=== PATIENT | female | born 1945 | race Caucasian/White ===

== ENCOUNTER 2019-05-12 12:20 | Inpatient (IN) ==
[2019-05-12] MEDS ORDERED: TYLENOL PO PRN (13:18)
[2019-05-12] MEDS ORDERED: ZOFRAN IV PRN (13:18)
--- NOTE | 2019-05-12 13:45 | Diag Imaging Result Doc PS360 ---
EXAM: CHEST-2 VIEWS 05/12/2019 HISTORY: hypoxia TECHNIQUE: PA and lateral chest COMMENT: There is cardiomegaly. There is no evidence of acute pulmonary disease and compared to 06/05/2018 there has been no appreciable change. IMPRESSION: Cardiomegaly. Electronically signed by Maynor Sauer 05/12/2019 1:43 PM
[2019-05-12 14:14] LABS: ALLEN TEST YES; BE 12.1 mmoll (-3.0-3.0); BLOOD TYPE ARTERIAL; HCO3-(ACT) 34.4 mmoll (20.0-26.0); METHB 1.1 % (0.0-1.5); O2(CT) 13.4 mL/dL (15.0-23.0); O2HB 96.1 % (95.0-99.0); PCO2(98.6) 47 mmHg (35-45); PO2(98.6) 93 mmHg (60-100); SAMPLE BLOOD; SAO2 98.9 % (95.0-100.0); THB 9.8 g/dL (11.5-17.4)
[2019-05-12 14:17] LABS: MODALITY CANNULA
--- NOTE | 2019-05-12 14:23 | EKG Report ---
Test Performed on : 05/12/2019 2:14:17 PM Test Reason : hypoxia Blood Pressure : / mmHG Vent. Rate : 086 BPM Atrial Rate : 084 BPM P-R Int : 000 ms QRS Dur : 084 ms QT Int : 416 ms P-R-T Axes : 000 084 046 degrees QTc Int : 497 ms Normal sinus rhythm. Low voltage QRS Nonspecific ST and T wave abnormality Abnormal ECG No previous ECGs available Confirmed by Stevie Cash MD ([id number]) on 05/13/2019 9:25:01 PM
[2019-05-12 15:16] LABS: BASO# 0.01 X1000 (0.0-0.2); BASO% 0.1 % (0.0-0.8); EOS# 0.27 X1000 (0.0-0.7); HEMATOCRIT 31.7 % (37.0-47.0); HEMOGLOBIN 9.6 g/dL (12.0-16.0); IMM GRAN# 0.03 X1000 (0.0-0.04); IMM GRAN% 0.3 % (0.0-0.5); LYMPH# 1.43 X1000 (1.2-3.4); LYMPH% 15.8 % (20.5-51.1); MCH 26.7 PG (27-31); MCHC 30.3 g/dL (33-37); MCV 88.1 FL (81-99); MONO# 0.67 X1000 (0.11-0.59); MONO% 7.4 % (1.7-9.3); MPV 9.6 FL (7.4-10.4); NEUT# 6.62 X1000 (1.4-6.5); NEUT% 73.4 % (42.2-75.2); PLT 258 X1000 (130-400); RDW 15.5 % (11.5-14.5); WBC 9.03 X1000 (4.8-10.8)
[2019-05-12 15:36] LABS: IRON SATURATION 14 %; TIBC 273 ug/dL; TOTAL IRON 39 ug/dL (49-151); UNBOUND IRON 234 ug/dL (112-346)
[2019-05-12 15:37] LABS: ALB/GLOB RATIO 1.1; ALBUMIN 3.2 g/dL (3.5-5.0); CALCIUM 7.7 mg/dL (8.8-10.2); CREATININE 1.9 mg/dL (0.5-0.9); POTASSIUM 4.4 mmol/L (3.5-5.1); TOTAL BILIRUBIN 0.32 mg/dL (0.20-1.00); TOTAL PROTEIN 6.2 g/dL (6.3-8.3)
[2019-05-12 16:13] LABS: FREE T4 1.68 ng/dL (0.93-1.70); TSH 1.1 uIUmL (0.27-4.20)
[2019-05-12 16:20] LABS: URINE SOURCE CLEAN CATCH
[2019-05-12 16:26] LABS: BILIRUBIN URINE NEGATIVE (NEGATIVE); BLOOD URINE NEGATIVE (NEGATIVE); COLOR YELLOW; GLUCOSE URINE NEGATIVE (NEGATIVE); KETONE URINE NEGATIVE (NEGATIVE); LEUKOCYTES URINE LARGE (NEGATIVE); NITRITE URINE NEGATIVE (NEGATIVE); PROTEIN URINE NEGATIVE (NEGATIVE); SP GRAVITY URINE 1.009; TURBIDITY URINE CLEAR (CLEAR); UR EPITHELIAL CELLS <10 /HPF (<10); URINE BACTERIA 3+ /HPF; URINE RBC <10 /HPF (<10); URINE WBC 20-40 /HPF (<10); UROBILINOGEN URINE NORMAL (NORMAL)
[2019-05-12] MEDS ORDERED: HUMULIN 70/30 SUBQ SCH (21:00)
[2019-05-12] MEDS: NORCO-5 PO SCH ×2 (22:45→22:51)
[2019-05-12] MEDS: ELAVIL PO SCH (22:45)
[2019-05-12] MEDS: HUMULIN R SUBQ SCH (23:27)
[2019-05-13] MEDS: HUMULIN R SUBQ SCH ×4 (06:37→21:27)
--- NOTE | 2019-05-13 07:40 | HISTORY AND PHYSICAL ---
CHIEF COMPLAINT: Dry hacky cough and hoarseness. HISTORY OF PRESENT ILLNESS: The patient is a 74-year-old white female followed in my medical practice. She has longstanding obesity and some upper airway noise and comes in with 5-day history of dry hacky cough, some hoarseness. She has been taking some xekl-axz-[id number] Zyrtec-D with minimal improvement. Noted in the office to have all room air O2 saturation of 86% and at complete rest 89%. She has had some leg swelling and redness of the left beckman and leg area. The patient has difficulty getting about and is largely confined to her apartment. She has no way to travel, except friends take her to appointments as needed, and she was unable to get the carotid Dopplers ordered on her outpatient recently due to some carotid bruits noted on physical, left greater than right, back at her physical in January. She has been noted to have anemia and is folic acid deficient by labs reviewed from 01/13/2019. She denies melena, hematochezia. She has had normal bowel movements by her report. She has refused colonoscopy through the years. MEDICATIONS: Prior to admission are new addition of Crestor, which she has tolerated well at 10 mg p.o. at bedtime, Lasix 40 mg p.o. b.i.d., Coreg 6.25 mg b.i.d., Synthroid 200 mcg daily, losartan 100 mg daily, Elavil 10 mg at bedtime, Novolin NPH insulin 58 units subcutaneous q.a.m., 38 units subcutaneous q.p.m., NovoLog 28 units subcutaneous q.a.m., 22 units subcutaneous q.p.m. ALLERGIES: ISIDRO inhibitors, which caused angioedema. PAST MEDICAL HISTORY: 1. Type 2 diabetes mellitus diagnosed in 1996. 2. Hypothyroidism in 1971 after radioactive iodine ablation due to hyperthyroidism. 3. Chronic back pain. 4. Gastroesophageal reflux disease with hiatal hernia. 5. Osteoarthritis. 6. Hypertension diagnosed January 2002. 7. History of BCC left nasal bridge March 2002, treated surgically. 8. Hypercholesterolemia. 9. Morbid obesity. PAST SURGICAL HISTORY: 1. Lumbar laminectomy secondary to stenosis October 1997. 2. Partial thyroidectomy x2. 3. Lumbar laminectomy in 1985. 4. BTL. 5. Right TKR 2005. 6. Negative breast biopsy June 2009. IMMUNIZATIONS: 1. Pneumovax 23 given 12/26/1998, February 2004 and December 2014. 2. Prevnar 13 given 07/24/2015. 3. Influenza vaccine given January 2019. 4. Td given February 2016. FAMILY HISTORY: Notable for ME in 2 uncles at greater than 60 years of age. Mother with osteoarthritis. TIP PRINTER cancer in her aunt. Diabetes mellitus in her father. No hypertension or strokes in the family. SOCIAL HISTORY: The patient lives in [place]. She is , has 2 sons. Retired from [employer]. Has never been a smoker. Does not drink alcohol. REVIEW OF SYSTEMS: CV: Denies chest pains recently. Denies palpitations. Has had some moderate OLMSTEAD. Skin: No recent moles or rashes. She does bruise easily. HEENT: She denies dizziness or headache. Has been having some sinus drainage and hoarseness; the hoarseness has been fairly prominent. GI: Denies dyspepsia, melena, hematochezia. Never had a colonoscopy. Normal BM's. Musculoskeletal: Complains of arthritic pain; diffuse in hands, hips, especially. PHYSICAL EXAM: VITAL SIGNS: Height 5 feet 4 inches tall. She is unable to weigh currently as she is on a walker. Blood pressure 122/54, pulse 85, O2 saturation 86% after ambulating into the office on a walker, 89% at rest on room air. Moderate to severe obesity with short stature. SKIN: Scattered bruises over the forearms. PERRL. EOMI. Sclerae minimal injection. TMs clear. OP mild redness, posterior drainage. Large tongue. Upper airway noise noted, nares fairly clear. NECK: No LA, JVD. There are carotid bruits, left greater than right. No definite TMG. CV: RRR without distinct murmur. LUNGS: Distant breath sounds, CTA. BACK: No point tenderness. ABDOMEN: Protuberant, soft NT/ND. No mass. No HSM. BREASTS/PELVIC/RECTAL: Deferred. EXT: There is 2+ left lower extremity edema with prominent redness over the left beckman area. 1+ lower extremity edema, right lower extremity. No calf tenderness or cords. NEUROLOGIC: Cranial nerves 2-12 are intact. No focal deficits. LABORATORY DATA: A1c in the office shows 7.9. Lab data from January shows anemia with folate level of 6.6, free T4 1.58, TSH 1.79, ferritin 49, B 12 greater than 2000. Total iron 47, TIBC 312, percent saturation 15. PTT 29.2, PT 14, INR 1.07. ASSESSMENT: 1. Hypoxia. 2. Recent cough with hoarseness. 3. Large neck with upper airway noise prominent. 4. Insulin-dependent diabetes mellitus. 5. Hypertension. 6. Hypercholesterolemia. 7. Profound osteoarthritis. 8. Morbid obesity. 9. Hypothyroidism. 10. Carotid bruits, left greater than right. 11. Chronic back pain. 12. Gastroesophageal reflux disease with hiatal hernia. 13. Pronounced anemia with iron deficiency and folic acid deficiency. PLAN: Due to the hypoxia and cough, we will admit the patient. Check chest x-ray. Check extensive labs. Check echocardiogram. Check carotid Doppler studies by oxygen supplementation. Monitor Accu-Cheks. Will get a GI consult due to anemia and no prior history of colonoscopy as she has refused to this point. cc: Marko Maynard MD
[2019-05-13 07:54] LABS: BASO# 0.02 X1000 (0.0-0.2); BASO% 0.2 % (0.0-0.8); EOS# 0.27 X1000 (0.0-0.7); EOS% 2.8 % (0.0-10.0); HEMATOCRIT 33.7 % (37.0-47.0); HEMOGLOBIN 10.2 g/dL (12.0-16.0); IMM GRAN# 0.02 X1000 (0.0-0.04); IMM GRAN% 0.2 % (0.0-0.5); LYMPH# 1.26 X1000 (1.2-3.4); LYMPH% 12.8 % (20.5-51.1); MCH 26.8 PG (27-31); MCHC 30.3 g/dL (33-37); MCV 88.5 FL (81-99); MONO# 0.67 X1000 (0.11-0.59); MONO% 6.8 % (1.7-9.3); MPV 9.7 FL (7.4-10.4); NEUT# 7.57 X1000 (1.4-6.5); NEUT% 77.2 % (42.2-75.2); PLT 293 X1000 (130-400); RBC 3.81 XMIL (4.2-5.4); RDW 15.5 % (11.5-14.5); WBC 9.81 X1000 (4.8-10.8)
[2019-05-13] MEDS ORDERED: HUMULIN 70/30 SUBQ SCH (08:00)
[2019-05-13 08:18] LABS: CALCIUM 8.5 mg/dL (8.8-10.2); CREATININE 1.7 mg/dL (0.5-0.9); POTASSIUM 4.7 mmol/L (3.5-5.1)
[2019-05-13] MEDS ORDERED: DIFLUCAN PO SCH (09:00)
[2019-05-13] MEDS: NORCO-5 PO SCH ×2 (09:50→21:26)
[2019-05-13] MEDS: SYNTHROID PO SCH (09:51)
[2019-05-13] MEDS: ZOSYN 3.375 GM in NS 50 ML IV SCH ×3 (09:51→21:27)
[2019-05-13] MEDS: SINGULAIR PO SCH (09:51)
[2019-05-13] MEDS: LASIX PO SCH (09:51)
[2019-05-13] MEDS: ASPIRIN PO SCH (09:51)
--- NOTE | 2019-05-13 12:39 | ECHO REPORT ---
ORDER DATE: 05/12/2019 INTERPRETING PHYSICIAN: Abebe Sanford MD. REQUESTING PHYSICIAN: Marko Maynard MD. CLINICAL INDICATIONS: Hypoxia, CHF. M-MODE MEASUREMENTS: Left ventricle end diastole: 5.6 cm. Left ventricle end systole: 2.3 cm. Posterior wall: 0.9 cm. Interventricular septum: 0.9 cm. Left atrium: 2.8 cm. Aortic diameter: 3.0 cm. SUMMARY OF 2-DIMENSIONAL IMAGIN. The left ventricular function appears to be normal. Ejection fraction is estimated at 65% to 70%. Optison was added. The chamber is not dilated. There is no wall motion abnormality. 2. The right-sided chambers appear to be normal. 3. The left atrium also does not appear to be dilated. 4. The inferior vena cava is probably at the upper limits of normal. 5. The aortic valve is grossly normal. Color flow mapping unremarkable. 6. The mitral valve also looks grossly normal. Color flow mapping is unremarkable. 7. The pulse wave Doppler of mitral inflow shows normal E/A ratio. 8. Tissue Doppler of septal and lateral mitral annulus averages 5-1/2 cm, thus suggesting impaired left ventricular relaxation. 9. The pulmonary pressure in this case is probably underestimated however it appears to be grossly normal. Pulmonic valve was suboptimally visualized. 10.Doppler pattern is unremarkable. 11.There is no pericardial effusion, no mass, and no thrombus. Clinical correlation is recommended. cc: MD Marko Bhandari MD
--- NOTE | 2019-05-13 14:15 | PROGRESS NOTE ---
DATE: 05/13/2019 SUBJECTIVE: Patient is stable. She denies particular shortness of breath. She is on oxygen at 1- 2 liters/minute per nasal cannula and saturations are doing well at 90-96% percent. OBJECTIVE: Vital Signs: Afebrile. Vital signs stable. Blood pressure mildly elevated. Cardiovascular: Regular rate and rhythm. Lungs: Clear. Morbid obesity. Some upper airway noise noted. Abdomen: Soft, nontender, nondistended. Extremities: No calf tenderness. There is 1 to 2+ edema left slightly greater than right. Mild to moderate redness over the shins, left greater than right. Neurologic: Cranial nerves 2 through 12 intact. Nonfocal. LABORATORY DATA: Urinalysis was abnormal yesterday with large leukocytes, 3+ bacteria. Urine cultures growing out gram-negative rods. Patient asymptomatic from this on questioning. Sodium 140, potassium 4.7 chloride 96, CO2 32, BUN 31, creatinine 1.7. Blood sugars in the low 100s primarily, 60 on admission yesterday. Calcium 8.5. White count normal at 9.8, hemoglobin 10.2, platelets 293,000. ABG yesterday on 2 L per nasal cannula shows pH 7.5, pCO2 47, PO2 93, HCO3 34, O2 saturation 98.9. Echocardiogram done this morning overall good with EF of 65%. Carotid Doppler test shows some lqqd-ec-fbkdinoh blockage on the right. No major blockage on the left. ASSESSMENT: 1. Hypoxia. 2. Recent cough and hoarseness, rule out allergic bronchitis. 3. Upper airway noise with large neck. 4. Insulin-dependent diabetes mellitus. 5. Cellulitis lower extremities, left slightly greater than right. 6. Gram-negative alessia urinary tract infection. 7. Hypertension. 8. Hypercholesterolemia. 9. Profound osteoarthritis. 10. Morbid obesity. 11. Hypothyroidism. 12. Carotid bruits with mild to moderate right carotid stenosis. 13. Chronic back pain on chronic narcotic medication. 14. Gastroesophageal reflux disease with hiatal hernia. 15. Pronounced anemia, iron deficiency with normal folic acid level, currently. PLAN: Will await GI evaluation for possible endoscopies regarding the anemia. Continue oxygen at this time. Add physical therapy. Continue Zosyn. Add nebulizer treatments. Ambulate patient. Encouraged her in weight reduction. Continue IV Zosyn. Leg elevation encouraged. cc: Marko Maynard MD
[2019-05-13] MEDS: DUONEB (A & A) INH SCH ×3 (16:42→23:40)
--- NOTE | 2019-05-13 19:14 | GASTROENTEROLOGY CONSULTATION ---
DATE: 05/13/2019 REASON FOR CONSULTATION: Anemia. PRESENT ILLNESS: This is a 74-year-old female who is a patient of Dr. Maynard. She has been following with him for some chronic respiratory problems. She has had lower extremity edema. Also she has had a report of a dry cough and some hoarseness. Prior to admission she was taking apdp-phd-swdyzwv antihistamines, with no improvement. She has also had findings of anemia since last year. She has denied visible blood in the stool or black stools. No reported change in her bowel habits. No reported diarrhea or constipation. She usually has a bowel movement every other day. She denies abdominal pain. She denies nausea or vomiting. Denies hematemesis. She denies reflux as long as she is taking her antireflux medication. She usually takes cnvs-nqe-xzxgnat Tag[place]. She reports occasional dysphagia to meats. She has noticed hoarseness. She states she has a thick neck and tongue, so sometimes she has trouble swallowing. She has had 2 thyroid surgeries for goiters. She has also received radiation and iodine treatment for the goiters. She has seen a call center receptionist in the past but it has been many years ago. She thinks maybe it was Dr. Dykes. She states she has never had an EGD or colonoscopy by her knowledge. PAST MEDICAL HISTORY: 1. Type 2 diabetes. 2. Hypothyroidism. 3. History of goiters and radiation/radioactive iodine. 4. Chronic back pain. 5. GERD. 6. Osteoarthritis. 7. Hypertension. 8. Hypercholesterolemia. 9. Morbid obesity. PAST SURGICAL HISTORY: Lumbar laminectomy, partial thyroidectomy x2 related to goiters, lumbar laminectomy, bilateral tubal ligation, right total knee replacement in 2005, breast biopsy. ALLERGIES: Oxycodone, unknown reaction; morphine causes confusion. HOME MEDICATIONS: Elavil 10 mg every night; aspirin 81 mg daily; Coreg 6.25 mg twice a day; vitamin D3, 2000 mcg daily; Lasix 40 mg twice a day; insulin 70/30 daily; hydrocodone/acetaminophen 5/500, 7.5 mg twice a day; NovoLog 22 units at night; NovoLog 25 units in the morning; Synthroid 200 mcg daily; Cozaar 100 mg daily; B12, 1000 mcg daily; Crestor 10 mg every night. SOCIAL HISTORY: She lives in [place]. She is . She has 2 sons. She is retired. Never a smoker. No reported alcohol use. REVIEW OF SYSTEMS: Per history of present illness. PHYSICAL EXAMINATION: Vital signs: Temperature 97.5 degrees, pulse 72, respirations 20, blood pressure 151/44. Generally the patient is awake and alert. She is sitting up in a chair in no acute distress at the time of my visit. She was not wearing her oxygen. Per nurse report, she has been on O2 by nasal cannula as needed 1-2 L throughout the day. The patient currently denies chest pain or shortness of breath. HEENT: Normocephalic, atraumatic. Pupils equal, round, reactive to light. Sclerae nonicteric. Lungs with some decreased sounds noted. Abdomen obese, otherwise soft, nontender. Positive bowel sounds. Extremities with bilateral lower extremity edema noted. Neurologically, cranial nerves 2-12 grossly intact. The patient is awake and alert, oriented to person, place and time. LABORATORY DATA: Hematology: WBC 9.81, hemoglobin 10.2, hematocrit 33.7, MCV 88.5, platelets 293,000. Chemistry: Sodium 140, potassium 4.7, chloride 96, CO2 is 32, BUN 31, creatinine 1.7, glucose 143, calcium 8.5. Iron 39, TIBC 273, percent saturation 14, ferritin 38. Total bilirubin 0.32, AST 11, ALT 6, alkaline phosphatase 77. Vitamin B12 greater than 1000, folate 11.8. TSH 1.10, free T4 is 1.68. IMAGING: Chest x-ray showing cardiomegaly. ASSESSMENT: 1. Recent cough, hoarseness. 2. Insulin-dependent diabetes. 3. Cellulitis, lower extremities. 4. Urinary tract infection. 5. Anemia, with hemoglobin and hematocrit 10.2 and 33.7 today. 6. Other medical problems: Morbid obesity, hypothyroidism related to thyroid surgeries related to goiters, gastroesophageal reflux disease. PLAN: The patient has never had EGD or colonoscopy by her report. She has some iron-deficiency anemia. Would recommend EGD first, and further plans to be made according to findings. I have discussed the EGD procedure with the patient. She wishes to proceed. I have discussed benefits and risks with the patient. Further plans to be made according to findings. Thank you for this consultation. I have discussed this case with Dr. Asa. Dictated by JUAN M Mcduffie for Arik Bray MD cc: JUAN M Basilio MD Stephen W. Harbin, MD
[2019-05-13] MEDS: CRESTOR PO SCH (21:26)
[2019-05-13] MEDS: COREG PO SCH (21:26)
[2019-05-13] MEDS: ELAVIL PO SCH (21:26)
[2019-05-14] MEDS: ZOSYN 3.375 GM in NS 50 ML IV SCH ×4 (03:25→20:54)
[2019-05-14] MEDS: DUONEB (A & A) INH SCH ×6 (03:30→23:15)
[2019-05-14] MEDS: HUMULIN R SUBQ SCH ×4 (06:29→20:55)
[2019-05-14] MEDS ORDERED: DIPRIVAN 1% ONE (11:38)
[2019-05-14] MEDS ORDERED: XYLOCAINE-MPF 2% ONE (11:39)
[2019-05-14] MEDS ORDERED: LOPRESSOR ONE (12:03)
--- NOTE | 2019-05-14 12:03 | ENDOSCOPY OPERATIVE NOTE ---
[facility] ENDOSCOPY OPERATIVE NOTE , EGD PROCEDURE REPORT PATIENT: Ora Guzman ADMISSION DATE: 05/14/2019 MR#: [id number] : 1945 PROCEDURE DATE: 05/14/2019 SURGEON: Arik Bray MD STATUS: inpatient RESPIRATORY PHYSICIAN: Rebekah Elliott and Kerline Wyatt PREOPERATIVE DIAGNOSIS: The patient is a 74 yr old female here for an EGD due to acute post hemorrha gic anemia and melena. PROCEDURE PERFORMED: EGD, diagnostic MEDICATIONS: Per Anesthesia TOPICAL ANESTHETIC: none CONSENT: The patient understands the risks and benefits of the procedure and understands that these r isks include, but are not limited to: sedation, allergic reaction, infection, perforation and/or bleeding. Alternative means of evaluation and treatment include, among others: physical exam, x-rays, and/or surgical intervention. The patient elects to proceed with this endoscopic procedure. HISORY AND PHYSICAL: 05/14/2019 DESCRIPTION OF PROCEDURE: During intra-op preparation period all mechanical and medical equipment was checked for proper function. Hand hygiene and appropriate measures for infection prevention was taken. After the risks, benefits and alternatives of the procedure were thoroughly explained, Informed consent was verified, confirmed and timeout was successfully executed by the treatment team. The patient was anesthetized with topical anesthesia and the [id number] ([id number]) endoscope was introduced through the mouth and advanced to the second portion of the duoden um. Retroflexion was performed in the stomach and revealed no abnormalities. The gastroscope was then slowly withdraw n and removed. ESOPHAGUS: Mild reflux esophagitis was found 38 cm from the incisors and at the gastroesophageal junc tion. Esophagitis was LA Class B: One or more mucosal breaks > 5mm, but without continuity across mucosal folds. The esophagus was otherwise normal. STOMACH: Mild gastritis (inflammation) was found in the gastric antrum. DUODENUM: Moderate duodenal inflammation was found in the duodenal bulb. PERTINENT NEGATIVES: There was no evidence of ulcer and tumor. SPECIMENS REMOVED: No ADVERSE EVENTS: There were no complications. POSTOPERATIVE DIAGNOSIS: 1. Reflux esophagitis 38 cm from the incisors and at the gastroesophage al junction 2. The esophagus was otherwise normal 3. Gastritis (inflammation) was found in the gastric antrum 4. Duodenal inflammation was found in the duodenal bulb RECOMMENDATIONS: 1. Start Proton pump inhibitor twice daily - 30 minutes before a meal 2. Avoid non-steroid anti-inflammatory drugs 3. Resume previous diet 4. Return to floor when standard parameters are met REPEAT EXAM: Arik Bray MD eSigned: Arik Bray MD 05/14/2019 12:03 PM cc: Marko Maynard MD PATIENT NAME: Thomas Johnathandavid Bagley MR#: [id number]
--- NOTE | 2019-05-14 12:59 | EKG Report ---
Test Performed on : 05/14/2019 12:46:41 PM Test Reason : rhythm change Blood Pressure : / mmHG Vent. Rate : 082 BPM Atrial Rate : 082 BPM P-R Int : 190 ms QRS Dur : 078 ms QT Int : 420 ms P-R-T Axes : 010 099 094 degrees QTc Int : 490 ms Normal sinus rhythm. with sinus arrhythmia. Rightward axis Low voltage QRS Septal infarct , age undetermined Nonspecific T wave abnormality Abnormal ECG When compared with ECG of 12-MAY-2019 14:14, Nonspecific T wave abnormality no longer evident in Inferior leads Nonspecific T wave abnormality now evident in Anterior leads Confirmed by Stevie Cash MD ([id number]) on 05/16/2019 12:39:11 PM
--- NOTE | 2019-05-14 14:18 | Carotid Study ---
DATE: 05/13/2019 BILATERAL CAROTID DUPLEX: SPECIAL SERVICES DIRECTOR: Brown. REFERRING PHYSICIAN: Dr. Maynard. INDICATION: Bruit. FINDINGS: In the right carotid artery system, there is a heterogeneous plaque from the bulb extending to proximal internal carotid artery that caused elevation of velocities in the mid to distal internal carotid artery that would correlate to a 40 to 59 percent stenosis. On the left, there is no significant atherosclerotic changes. Vertebral are antegrade bilaterally. IMPRESSION: Moderate stenosis on the right with no significant hemodynamic or atherosclerotic changes noted on the left. cc: MD Marko Robbins MD
[2019-05-14] MEDS: ASPIRIN PO SCH (16:12)
[2019-05-14] MEDS: LASIX PO SCH (16:12)
[2019-05-14] MEDS: COZAAR PO SCH (16:12)
[2019-05-14] MEDS: COREG PO SCH ×2 (16:12→20:54)
[2019-05-14] MEDS: NORCO-5 PO SCH ×2 (16:13→20:58)
[2019-05-14] MEDS: PATIENT'S OWN MED PO SCH (16:13)
[2019-05-14] MEDS: SINGULAIR PO SCH (16:14)
[2019-05-14] MEDS: SYNTHROID PO SCH (16:14)
[2019-05-14] MEDS: VITAMIN D PO SCH (16:14)
--- NOTE | 2019-05-14 17:40 | PROGRESS NOTE ---
DATE: 05/14/2019 SUBJECTIVE: The patient underwent EGD and no major bleeding findings were noted, but she had a brief episode of atrial fibrillation that responded to Lopressor given by Dr. Robertson the anesthesiologist. She spontaneously converted back to sinus rhythm. She had no symptoms with it. No chest pains. No palpitations and has not had any prior history of atrial fibrillation. OBJECTIVE: Afebrile, pulse 76 now, respirations 20, blood pressure 113/91, O2 saturation on 4 L per nasal cannula 95%.CV: RRR without murmur. Lungs: CTA. Abdomen: Nontender. Extremities: 1+ lower extremity edema with some redness over the shins, left slightly greater than right. This may be very slightly improved from admission. Neurologic: Cranial nerves are intact. LABORATORY DATA: Urine culture is growing out Klebsiella sensitive to Zosyn. ASSESSMENT: 1. Hypoxia, no definite etiology, rule out related #2. 2. Recent hoarseness and allergic bronchitis. 3. Upper airway noise with large neck longstanding. 4. Gastritis/duodenitis, mild. 5. Brief atrial fibrillation, now converted back to sinus rhythm. 6. Insulin-dependent diabetes mellitus. 7. Cellulitis lower extremities left greater than right number. 8. Klebsiella pneumoniae urinary tract infection. 9. Hypertension. 10. Hypercholesterolemia. 11. Profound osteoarthritis. 12. Morbid obesity. 13. Hypothyroidism. 14. Mild to moderate right carotid stenosis. 15. Chronic back pain on chronic narcotic medication. 16. History of gastroesophageal reflux disease with hiatal hernia. 17. Anemia, iron deficiency in nature with essentially no etiology found per esophagogastroduodenoscopy. 18. Renal insufficiency, mild to moderate. PLAN: We will monitor in the PVC unit on telemetry. She is on Coreg and her home medications. We will continue those. She is back on a healthy heart diet. Continue IV Zosyn. Continue nebulizer treatments. Physical therapy is in progress. She declines evaluation for rehab facility but wishes to return to home, so we will check ABG on room air to see if she qualifies for oxygen therapy. We will do that on Friday morning. We will ambulate her and monitor her heart rate over the weekend. Continue supportive measures. cc: Marko Maynard MD [facility]
[2019-05-14] MEDS: CRESTOR PO SCH (20:53)
[2019-05-14] MEDS: ELAVIL PO SCH (20:54)
[2019-05-15] MEDS: ZOSYN 3.375 GM in NS 50 ML IV SCH ×5 (02:47→20:47)
[2019-05-15] MEDS: DUONEB (A & A) INH SCH ×6 (03:12→22:55)
[2019-05-15] MEDS: HUMULIN R SUBQ SCH ×4 (06:19→20:50)
[2019-05-15] MEDS: NORCO-5 PO SCH ×2 (08:21→21:03)
[2019-05-15] MEDS: COZAAR PO SCH (08:22)
[2019-05-15] MEDS: COREG PO SCH ×2 (08:22→20:47)
[2019-05-15] MEDS: LASIX PO SCH (08:22)
[2019-05-15] MEDS: ASPIRIN PO SCH (08:22)
[2019-05-15] MEDS: SINGULAIR PO SCH (08:22)
[2019-05-15] MEDS: VITAMIN D PO SCH (08:22)
[2019-05-15] MEDS: SYNTHROID PO SCH (08:23)
[2019-05-15] MEDS: PATIENT'S OWN MED PO SCH (08:23)
[2019-05-15] MEDS ORDERED: ROBITUSSIN PO PRN (09:59)
--- NOTE | 2019-05-15 10:25 | PROGRESS NOTE ---
DATE: 05/15/2019 OBJECTIVE: Vital signs: Stable with temperature 97.8 degrees, heart rate 78, respirations 19, blood pressure 108/88, O2 saturation on 2 liters nasal oxygen 90%, down from 97% earlier this morning. HEENT: She complains with some eye watering and hoarseness. She has no sore throat. Respiratory: There has been minimal cough. Lungs are clear to auscultation. Extremities: Her cellulitis seems to be improving in her legs. IMAGING STUDIES: EGD on 05/13 revealed duodenitis and gastritis. PLAN: Continue current therapy with piperacillin, Zyrtec and Robitussin ordered. cc: MD Marko Cintron MD
[2019-05-15] MEDS: ZYRTEC PO SCH (10:30)
[2019-05-15] MEDS: CRESTOR PO SCH (20:47)
[2019-05-15] MEDS: ELAVIL PO SCH (20:47)
[2019-05-16] MEDS: DUONEB (A & A) INH SCH ×5 (02:48→19:47)
[2019-05-16] MEDS: ZOSYN 3.375 GM in NS 50 ML IV SCH ×4 (04:22→21:13)
[2019-05-16] MEDS: HUMULIN R SUBQ SCH ×4 (06:10→21:13)
[2019-05-16] MEDS: SINGULAIR PO SCH (09:05)
[2019-05-16] MEDS: ASPIRIN PO SCH (09:05)
[2019-05-16] MEDS: ZYRTEC PO SCH (09:05)
[2019-05-16] MEDS: COZAAR PO SCH (09:05)
[2019-05-16] MEDS: SYNTHROID PO SCH (09:05)
[2019-05-16] MEDS: LASIX PO SCH (09:06)
[2019-05-16] MEDS: VITAMIN D PO SCH (09:06)
[2019-05-16] MEDS: NORCO-5 PO SCH ×2 (09:06→21:14)
[2019-05-16] MEDS: COREG PO SCH ×2 (09:06→21:13)
[2019-05-16] MEDS: PATIENT'S OWN MED PO SCH (09:08)
--- NOTE | 2019-05-16 09:32 | PROGRESS NOTE ---
DATE: 05/16/2019 VITAL SIGNS: Temperature 98.2 degrees, heart rate 81, respiration 18, blood pressure 147/44, O2 saturation on 2 liters nasal oxygen 95%. The patient does not use oxygen at home. She continues to be a little hoarse and has some clear rhinorrhea. Lungs are clear to auscultation. PLAN: Add Flonase nasal spray b.i.d. She is eating well and in general feeling a little better. Continue nebulizer treatments and intravenous antibiotics. cc: MD Marko Cintron MD
[2019-05-16] MEDS: CRESTOR PO SCH (21:13)
[2019-05-16] MEDS: FLONASE NAS SCH (21:13)
[2019-05-16] MEDS: ELAVIL PO SCH (21:13)
[2019-05-17] MEDS: DUONEB (A & A) INH SCH ×4 (03:27→11:52)
[2019-05-17] MEDS: ZOSYN 3.375 GM in NS 50 ML IV SCH ×2 (03:51→09:48)
[2019-05-17] MEDS: HUMULIN R SUBQ SCH ×2 (06:57→11:12)
[2019-05-17] MEDS: SINGULAIR PO SCH (08:00)
[2019-05-17] MEDS: VITAMIN D PO SCH (08:00)
[2019-05-17] MEDS: ZYRTEC PO SCH (08:00)
[2019-05-17] MEDS: ASPIRIN PO SCH (08:00)
[2019-05-17] MEDS: COZAAR PO SCH (08:00)
[2019-05-17] MEDS: COREG PO SCH (08:00)
[2019-05-17] MEDS: LASIX PO SCH (08:00)
[2019-05-17] MEDS: FLONASE NAS SCH (08:01)
[2019-05-17] MEDS: PATIENT'S OWN MED PO SCH (08:01)
[2019-05-17] MEDS: NORCO-5 PO SCH (08:06)
[2019-05-17 08:11] VITALS: BP 165/67
--- NOTE | 2019-05-17 08:18 | PROGRESS NOTE ---
DATE: 05/17/2019 SUBJECTIVE: The patient is stable. No complaints. She did have a bowel movement this morning that we checked for occult blood. She does have shortness of breath with exertion, such as ambulation to the bathroom. O2 saturation was checked by the nurse on room air after returning from walking to the restroom, on her oxygen. Her O2 saturation off the oxygen on room air was 82%. It is 97-99% on 2 L of oxygen at rest. OBJECTIVE: Afebrile. Vital signs stable. CV: RRR without significant murmur. Lungs: Distant breath sounds. Clear to auscultation. Mild upper airway noise. Abdomen: Protuberant, soft. Large neck. Body habitus is obese. Extremities: Trace lower extremity edema. Red hue over the lower extremity beckman areas, left greater than right. Neurologic: CN 2 through 12 intact. NF. Lab Data: ABG reviewed. Urine culture grew out the Klebsiella sensitive to Zosyn, which she has been on. ASSESSMENT: 1. Hypoxia. 2. Upper airway noise/hoarseness/allergic bronchitis. 3. Gastritis/duodenitis, mild per esophagogastroduodenoscopy. 4. Brief atrial fibrillation, now converted back to sinus rhythm. 5. Insulin-dependent diabetes mellitus. 6. Cellulitis of lower extremities, left greater than right. 7. Klebsiella pneumoniae urinary tract infection. 8. Hypertension. 9. Hypercholesterolemia. 10. Profound osteoarthritis. 11. Morbid obesity. 12. Hypothyroidism. 13. Mild to moderate right carotid stenosis. 14. Chronic back pain on chronic narcotic pain medications, stable times years. 15. History of gastroesophageal reflux disease with a hiatal hernia. 16. Anemia, iron deficiency in nature, with no definite etiology found per esophagogastroduodenoscopy. 17. Chronic mild to moderate renal insufficiency. PLAN: We will discharge the patient home on home oxygen therapy at 2 liters per minute per nasal cannula. Keep her on oral antibiotics of Levaquin to complete a 14 day course. Leg elevation 3 times a day, 30 minutes each time encouraged. Place her back on her NPH/regular insulin at home dosage and give her albuterol nebulizers. We will get her in with Dr. Dasilva in 2 to 3 weeks for outpatient evaluation with possible laryngoscopy. She will use albuterol MDI 2 puffs q.4 hours, Lasix 40 mg q.a.m., Zyrtec. She will continue her aspirin, Coreg, Elavil, hydrocodone, Singulair, Crestor. She may need outpatient colonoscopy later on per Dr. Bray but will be judicious with that as she had difficulty with the atrial fibrillation briefly after the EGD which spontaneously converted back to sinus rhythm. She is tenuous in regard to her long-term situation. cc: Marko Maynard MD
[2019-05-17] MEDS: SYNTHROID PO SCH (09:12)
[2019-05-17 09:36] LABS: ALLEN TEST NO; BE 10.9 mmoll (-3.0-3.0); BLOOD TYPE ARTERIAL; HCO3-(ACT) 33.4 mmoll (20.0-26.0); METHB 0.9 % (0.0-1.5); O2(CT) 13.9 mL/dL (15.0-23.0); O2HB 94.6 % (95.0-99.0); PCO2(98.6) 44 mmHg (35-45); PO2(98.6) 70 mmHg (60-100); SAMPLE BLOOD; SAO2 97.6 % (95.0-100.0); THB 10.4 g/dL (11.5-17.4); pH(98.6) 7.51 (7.35-7.45)
[2019-05-17 10:44] LABS: MODALITY ROOM AIR
--- NOTE | 2019-06-04 14:18 | DISCHARGE SUMMARY ---
ADMISSION DATE: 05/12/2019 DISCHARGE DATE: 05/17/2019 DIAGNOSES: 1. Hypoxia. 2. Upper airway noise/hoarseness/allergic bronchitis. 3. Gastritis/duodenitis per esophagogastroduodenoscopy. 4. Brief atrial fibrillation spontaneously converted back to sinus rhythm. 5. Insulin-dependent diabetes mellitus. 6. Cellulitis, bilateral lower extremities left greater than right. 7. Klebsiella pneumoniae urinary tract infection. 8. Hypertension. 9. Hypercholesterolemia. 10. Profound osteoarthritis. 11. Morbid obesity. 12. Hypothyroidism. 13. Moderate carotid stenosis on the right. 14. Chronic back pain on chronic narcotic medication stable times years. 15. Gastroesophageal reflux disease with history of hiatal hernia. 16. Anemia, iron deficiency with no definite etiology found per esophagogastroduodenoscopy. 17. Chronic [id number] renal insufficiency. PROCEDURES: 1. Echocardiogram revealing EF of 65% to 70%, mild left ventricular relaxation. 2. Chest x-ray done 05/12/2019 revealing cardiomegaly. 3. Carotid Doppler studies done 05/13/2019 revealing moderate stenosis on the right with no significant hemodynamic atherosclerotic changes on the left. 4. EGD done 05/14/2019 revealing reflux esophagitis, gastritis, inflammation in the duodenum bulb. CONSULTANTS: Dr. Bray, Gastroenterology. REASON FOR ADMISSION AND HOSPITAL COURSE: The patient is a 74-year-old white female followed in my medical practice. She has a history of longstanding obesity and upper airway noise, came in with dry hacking cough for 5 days with some hoarseness. Had seen minimal improvement with Zyrtec. O2 saturation in the office was 86 to 89 percent. She had some leg swelling in her shins, left greater than right with some chronic venous insufficiency and some cellulitis. She was admitted. Chest x-ray showed cardiomegaly, otherwise negative. Echocardiogram done with results as above. Leg elevation was performed. The patient was placed on IV antibiotics for cellulitis in her legs. Carotid Dopplers were obtained. She was supplied supplemental O2. A1c was noted to be 7.9. She had a folate level 6.6, free T4 1.58, TSH 1.79, ferritin 49, B12 greater than 2000, total iron 47, TIBC 312, percent saturation 15. PT/PTT were normal. The patient was started on physical therapy and IV Zosyn. We encouraged her in weight reduction. ABG on room air revealed pH 7.5, pCO2 47, PO2 93, HCO3 34, O2 saturation 98.9. Sodium 140, potassium 4.7, chloride 96, CO2 32, BUN 31, creatinine 1.7. Blood sugars were monitored. White count was 9.8, hemoglobin 10.2, platelets 293,000. The patient was given nebulizer treatments. Dr. Bray was consulted and performed EGD with findings of reflux esophagitis and some gastritis and duodenal duodenitis. The patient was kept on PPI. There was no source of bleeding found. The patient did have a brief episode of atrial fibrillation that responded Lopressor x1 given immediately after the EGD and she promptly responded and went back into sinus rhythm. She had no symptoms with it. She was monitored in the PVC unit on telemetry. She was resumed on her Coreg. The patient did well and was oxygenating and the patient was discharged on oxygen at 2 liters/minute per nasal cannula. Leg elevation was encouraged. She was given a 14 day course of Levaquin 250 mg p.o. daily for the cellulitis in her legs. We discussed her insulin regimen and she was maintained on NPH and regular insulin. We are going to set her up outpatient with Dr. Dasilva in 2-3 weeks for possible laryngoscopy for the upper airway noise. She also will need outpatient colonoscopy per Dr. Bray, as he plans on completing a GI/anemia workup. DISCHARGE MEDICATIONS: 1. Synthroid 200 mcg p.o. daily, Lasix 40 mg p.o. b.i.d., Elavil 10 mg p.o. at bedtime, Gray 7.5 mg p.o. b.i.d., aspirin 81 mg p.o. daily, vitamin D3 2000 mcg p.o. daily, Crestor 10 mg p.o. at bedtime. Coreg 6.25 mg p.o. b.i.d. 2. Cozaar 50 mg p.o. today, vitamin B12 1000 mcg chew tab p.o. daily, Flonase 2 sprays each nostril b.i.d. 3. Novolin NPH 60 units q.a.m. Novolin regular 25 units subcu q.a.m. Novolin NPH 40 units q.p.m., Novolin regular 22 units subcu q.p.m. 4. Robitussin 10 mL p.o. q.4 hours p.r.n. cough, Singulair 10 mg p.o. daily, Zyrtec 10 mg p.o. daily, discharged also on Levaquin 250 mg p.o. daily for 9 additional days to complete a 14 day course, albuterol MDI 2 puffs q.4 hours. cc: Marko Maynard MD
== END 2019-05-17 13:25 | disposition home or self-care (01) | DRG 603 ==
LOC: DIRADM 12:20 → EDIPHOLD 12:38 → 3N 19:57 → 2N 05-14 13:32
PROVIDERS: ADMIT Family Medicine; ATTEND Family Medicine